=== PATIENT | male | born 1955 | race Caucasian/White ===

== ENCOUNTER → 2020-07-26 10:51 | Outpatient (BNVA) | payer OTHER, SELFPAY | PROVIDERS: PCP Internal Medicine; Visit Provider Specialist | DX: M62.549 Muscle wasting and atrophy, not elsewhere classified, unspecified hand (principal); G44.309 Post-traumatic headache, unspecified, not intractable; R27.0 Ataxia, unspecified; Z87.891 Personal history of nicotine dependence | CPT/HCPCS: 99204 ==

== ENCOUNTER 2020-08-20 10:50 | Outpatient (CLI) | payer OTHER, SELFPAY ==
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
--- NOTE | 2020-08-20 11:45 | MR_ITS ---
WS: [id number] MRI CERVICAL SPINE NONCONTRAST TECHNIQUE: Sagittal T1, T2 and STIR imaging. Axial T2, gradient, and fiesta imaging. CLINICAL INFORMATION: M62.549 - Muscle wasting and atrophy, not elsewhere classified, unspecified [place] d COMPARISON: None. FINDINGS: Straightening of the normal cervical lordosis. Slight anterolisthesis C2 on C3. Slight retrolisthesis C4 on C5 and C5 on C6. Cord signal is normal. C2-C3: Osteophytic ridging. Moderate right bony foraminal narrowing. Left foramen is patent. Spinal c anal is patent. Mild facet arthropathy. C3-C4: Mild disc osteophytic ridging. Mild bilateral bony foraminal narrowing. Mild to moderate facet arthropathy. Spinal canal is patent. C4-C5: Disc osteophyte complex endplate ridging. Mild central canal stenosis. Moderate to severe left and moderate right bony foraminal narrowing. Moderate facet arthropathy. C5-C6: Disc osteophyte complex with endplate ridging. Severe left and moderate right bony foraminal n arrowing. Moderate facet arthropathy. Mild central canal stenosis. C6-C7: Disc osteophyte complex with endplate ridging. Mild central canal stenosis. Mild bilateral bon y foraminal narrowing left greater than right. C7-T1: Normal Visualized brain stem structures: Normal. Prevertebral soft tissues: Normal. MR/MR cervical spin wo con* [id number] IMPRESSION: 1. Straightening with slight reversal the normal cervical lordosis. Slight ant erolisthesis C2 on C3. 2. Mild central canal stenosis C4-C5 and C5-C6. 3. Moderate to severe bony foraminal narrowing worse at left C4-5, left C5-6 a nd left C6-7.
== END 2020-08-20 10:51 | disposition home or self-care (01) ==
LOC: RADSHAW 10:51
PROVIDERS: PCP Internal Medicine; Visit Provider Specialist
DX: S06.0X9D Concussion with loss of consciousness of unspecified duration, subsequent encounter (principal); G43.711 Chronic migraine without aura, intractable, with status migrainosus; G44.309 Post-traumatic headache, unspecified, not intractable; R27.0 Ataxia, unspecified; M47.812 Spondylosis without myelopathy or radiculopathy, cervical region; Z87.891 Personal history of nicotine dependence; M62.549 Muscle wasting and atrophy, not elsewhere classified, unspecified hand
CPT/HCPCS: 70551; 72141; 99215

== ENCOUNTER → 2020-10-07 09:09 | Outpatient (BNVA) | payer OTHER, SELFPAY | PROVIDERS: PCP Internal Medicine; Visit Provider Specialist | DX: G44.309 Post-traumatic headache, unspecified, not intractable (principal); R27.0 Ataxia, unspecified; Z87.891 Personal history of nicotine dependence | CPT/HCPCS: 99214 ==